=== PATIENT | female | born 1960 | race Caucasian/White ===

== ENCOUNTER 2018-07-18 16:11 | Outpatient (REF) | payer BC, SELFPAY ==
[2018-07-18 22:17] LABS: Anion Gap 7.8 mmol/L (3-11); BUN 18 mg/dL (7-18); CO2 29.2 mmol/L (21.0-32.0); CREATININE 0.64 mg/dL (0.55-1.02); Calcium 9.1 mg/dL (8.5-10.1); Chloride 104 mmol/L (98-107); Glucose 96 mg/dL (70-100); Potassium 3.9 mmol/L (3.5-5.1); Sodium 141 mmol/L (136-145)
[2018-07-20 12:12] LABS: Hepatitis C Ab w Rflx HCV PCR Negative (NEGAT)
== END 2018-07-18 16:31 ==
LOC: NCHCN 16:11
PROVIDERS: PCP Nurse Practitioner Family; Visit Provider Nurse Practitioner Family
DX: E11.9 Type 2 diabetes mellitus without complications (principal); R51 Headache; K21.9 Gastro-esophageal reflux disease without esophagitis; I47.1 Supraventricular tachycardia; G93.2 Benign intracranial hypertension; E66.9 Obesity, unspecified; Z00.00 Encounter for general adult medical examination without abnormal findings; Z11.59 Encounter for screening for other viral diseases
CPT/HCPCS: 80048; 86803

== ENCOUNTER 2019-07-23 14:43 | Outpatient (REF) | payer BC, SELFPAY | END 2019-07-23 15:03 | LOC: NCHCN 14:43 | PROVIDERS: PCP Nurse Practitioner Family; Visit Provider Nurse Practitioner Family | DX: L40.9 Psoriasis, unspecified (principal); Z00.00 Encounter for general adult medical examination without abnormal findings; R73.03 Prediabetes; R25.2 Cramp and spasm; G47.62 Sleep related leg cramps; G93.2 Benign intracranial hypertension; E66.9 Obesity, unspecified; M79.671 Pain in right foot | CPT/HCPCS: 84443 ==

== ENCOUNTER 2019-08-27 00:59 | Outpatient (CLI) | payer BC, SELFPAY ==
--- NOTE | 2019-08-27 16:04 | DI.MAMMO_ITS ---
EXAM: MAMMO SCREENING CLINICAL HISTORY: SCREENING, Z12.31 TECHNIQUE: Mammograms were interpreted according to the usual protocol including computer analysis w CITT[employer] CAD system, tomosynthesis and C-view imaging. FINDINGS: The breasts are of moderate density with fairly symmetrical distribution of fibroglandular tissue. N o dominant mass or clumped microcalcification is identified in breast. Current examination is compar ed with previous examinations including October 2017 and there has been no gross interval change in francisco earance in comparison with the previous studies. IMPRESSION: No specific evidence of malignancy at this time. Routine screening examinations are suggested at year ly intervals due to the family history of breast carcinoma. Category 1. Breast density, category B. BI-RADS Cat 1 - Negative. Breast Density - Category B - Scattered areas of fibroglandular density.
== END 2019-08-27 01:19 ==
PROVIDERS: PCP Nurse Practitioner Family; Visit Provider Nurse Practitioner Family
DX: Z12.31 Encounter for screening mammogram for malignant neoplasm of breast (principal); Z80.3 Family history of malignant neoplasm of breast
CPT/HCPCS: 77063; 77067

== ENCOUNTER 2019-09-18 15:20 | Emergency (ER) | payer BC, SELFPAY ==
[2019-09-18 15:22] VITALS: BP 150/81; PULSE 69; RESP 16; TEMP 36.5; O2SAT 97
--- NOTE | 2019-09-18 15:44 | ED.GENADUL_ITS ---
Discharge Plan Disposition Patient Disposition: HOME Condition: Improving Discharge Details Chief Complaint: Laceration Clinical Impression: Laceration of tongue without complication Primary Care Provider: Amanda Albarran ED Provider: Jesus Alberto Montanez Home Meds and New Rx's Prescriptions: No Action indomethacin 25 mg Capsule 25 mg PO DAILY RF: 0 Discharge Instructions Instructions: Laceration (ED) Additional Instructions: Continue to apply ice and/or popsicles to area to reduce discomfort and swelling. Return if you have a fever, foul-smelling discharge from the area or any other acute concerns. Soft diet for 3 days time. Medical Decision Making 59-year-old female who lacerated the right underside of her tongue bite catching it on a tooth while eating. She applied ice at home with cessation of bleeding. She arrives with a small 1 cm flap to the inferior portion of the right side of the tongue. There is no pocket and there is no active bleeding. Discussed the risk benefits of attempting repair which I feel is not indicated. She will maintain a soft diet for 2 to 3 days time, she will proceed with salt water gargles at home, she understands return precautions to the ER for reevaluation. HPI General Mode of arrival: ambulatory . Date/Time Provider Initiated Documentation: 09/18/19 15:24 . Limitations to Documentation: no limitations . Information obtained by: patient . History of Present Illness 59 year old F presents to the emergency department with the chief complaint of Tongue laceration, described as mild, Quality is described as dull, and is localized to the mouth and left. Patient reports no radiation. Patient started experiencing this minute(s) and it has been constant. No relieving factors improve symptom(s), No exacerbating factors reported . Patient notes no other symptoms.. Patient did receive the following treatments prior to arrival, none Related Data Home Medications Medication Instructions Recorded Confirmed indomethacin 25 mg PO DAILY 09/18/19 09/18/19 Allergies Allergy/AdvReac Type Severity Reaction Status Date / Time oxycodone Allergy Unknown Unverified 09/18/19 15:30 Sulfa (Sulfonamide Allergy Unknown Unverified 09/18/19 15:30 Antibiotics) General Stated Complaint: Laceration KATE: 4 Review of Systems Narrative: 4 systems reviewed and otherwise negative PFSH Social History Smoking/Tobacco Use Status: Never Alcohol Intake: never Drug use: Never Do you feel safe at home: Yes Do you feel safe in your relationship?: Yes Exam Narrative Exam Narrative: GEN: awake, alert, oriented 3. Pleasant, well groomed, interactive. HEAD: Normocephalic, atraumatic ENT: Mucous membranes moist, oropharynx reveals a small flap type laceration measuring approximate 1 cm on the right inferior surface of the tongue. There is no pocket. There is no active bleeding. EYES: PERRL, EOMI NECK: Full ROM, no HUONG, no menigismus Neuro: Grossly normal neurologic exam, conversant, interactive. Psych: Speech fluent, thoughts congruent, affect normal Course Vital Signs Vital signs: Vital Signs Temperature 36.5 C 09/18/19 15:22 Pulse 69 09/18/19 15:22 Respiratory Rate 16 09/18/19 15:22 Blood Pressure 150/81 H 09/18/19 15:22 Pulse Oximetry 97 09/18/19 15:22 Temperature 36.5 C 09/18/19 15:22 Temperature Source Temporal Artery Scan 09/18/19 15:22 Pulse 69 09/18/19 15:22 Respiratory Rate 16 09/18/19 15:22 Blood Pressure 150/81 H 09/18/19 15:22 Blood Pressure Position Supine 09/18/19 15:22 Pulse Oximetry 97 09/18/19 15:22 Oxygen Delivery Method Room Air 09/18/19 15:22 Oxygen Flow Rate 0 09/18/19 15:22 Pain Level 3 09/18/19 15:22
== END 2019-09-18 15:55 | disposition home or self-care (01) ==
PROVIDERS: Emergency Provider Emergency Medicine; PCP Nurse Practitioner Family
DX: S01.512A Laceration without foreign body of oral cavity, initial encounter (principal); W26.8XXA Contact with other sharp object(s), not elsewhere classified, initial encounter
CPT/HCPCS: 99282

== ENCOUNTER 2020-04-22 11:03 | Outpatient (CLI) | payer BC, SELFPAY ==
--- NOTE | 2020-04-22 10:30 | DI.RAD_ITS ---
EXAM: XR WRIST RT COMPLETE CLINICAL HISTORY: pain TECHNIQUE: COMPARISON: No exams were available for comparison FINDINGS: Three views were obtained. There are degenerative changes at the radioulnar joint with mild marginal osteophyte formation. Carpal alignment appears grossly within normal limits. There are marginal os teophytes at multiple sites involving the carpal joints, particularly at the navicular multangular an d multangular metacarpal joints. Small presumed degenerative cysts noted at multiple sites as well. IMPRESSION: Degenerative changes of the carpus as described above, most marked involving navicular multangular a nd multangular metacarpal joints RADIATION DOSE DELIVERED: Total DLP
== END 2020-04-22 11:23 ==
PROVIDERS: PCP Nurse Practitioner Family; Referring Provider Nurse Practitioner Family; Visit Provider Orthopaedic Surgery
DX: M19.031 Primary osteoarthritis, right wrist (principal); M25.731 Osteophyte, right wrist
CPT/HCPCS: 73110

== ENCOUNTER 2020-07-17 02:24 | Outpatient (CLI) | payer BC, SELFPAY ==
[2020-07-18 21:58] LABS: SARS-CoV-2 RNA Source Nasal/Nares
[2020-07-18 21:59] LABS: SARS-CoV-2 RNA Not Detected (NotDetected)
== END 2020-07-17 02:44 ==
PROVIDERS: PCP Nurse Practitioner Family; Visit Provider Orthopaedic Surgery
DX: Z01.818 Encounter for other preprocedural examination (principal); M65.4 Radial styloid tenosynovitis [de Quervain]
CPT/HCPCS: U0003

== ENCOUNTER 2020-07-21 06:06 | Day surgery (SDC) | payer BC, SELFPAY ==
[2020-07-21 06:23] VITALS: BP 137/81; PULSE 64; RESP 14; TEMP 36.4; O2SAT 97
[2020-07-21] MEDS: Lactated Ringers 1,000 ML 80 ML IV (06:40)
[2020-07-21] MEDS: ceFAZolin 1 GM/50 ML BAG IVPB (07:39)
[2020-07-21] MEDS: EPINEPHrine 1 MG/ML AMP pres-free (07:50)
[2020-07-21] MEDS: Bupivacaine 0.5% Pres-Free 30 ML VIAL (07:50)
--- NOTE | 2020-07-21 08:04 | W.PM.DSUDISC ---
Discharge Plan Disposition Patient Disposition: HOME Condition: Good Discharge Details Reason For Visit: RELEASE OF R FIRST DORSAL EXTENSOR COMPARTMENT Attending Provider: Jesus Alberto Pritchard Primary Care Provider: Amanda Albarran Home Meds and New Rx's Prescriptions: New hydrocodone-acetaminophen 5-325 mg tablet 1 tab PO Q6H PRN (Reason: pain) Qty: 7 RF: 0 Continued indomethacin 25 mg capsule 25 mg PO PRN Qty: 90 RF: 0 Discharge Instructions Additional Instructions: Elevate R hand above heart level as much as possible overnite tonite. Wiggle fingers 10 times/hr when awake to prevent swelling. Keep dressings and splint dry and in place for 5 days. Cover with plastic bag to shower. After 5 days, remove splint AND dressings and begin to move R wrist and thumb. Use R hand as much as your discomfort allows. May shower or bathe and get incision wet after you remove the dressings in 5 days. Leave incision uncovered when it is dry and sealed. Follow up with in 2 weeks. Take tylenol or indocin for mild pain. Take hydrocodone for breakthru pain, if needed. Referrals: Jesus Alberto Pritchard MD [ [facility] STAFF PHYSICIAN] - (f/u in 2 weeks.) Equipment/Supplies: Splint Activity:: Activity as Tolerated Shower/Bathe:: Cover Diet:: As Tolerated Discharge Orders Discharge Orders: Discharge Order (Routine); Ordered 07/21/20 Ordered By: Jesus Alberto Pritchard
[2020-07-21 08:46] VITALS: BP 112/53; PULSE 64; RESP 16; TEMP 36; O2SAT 98
--- NOTE | 2020-07-21 10:53 | W.PM.OP ---
Date of service: 07/21/20 Time of Service: 07:53 Operative Note Operative Note DATE OF PROCEDURE: 07/21/20 PRE-OP DIAGNOSIS: Tenosynovitis of the 1st dorsal extensor compartment right wrist, application of short arm radial thumb spica splint POST-OP DIAGNOSIS: same PROCEDURE: Tendon sheath incision at radial styloid for tenosynovitis of the 1st dorsal extensor compartment. SURGEON: Jesus Alberto Pritchard ANESTHESIA: regional PATHOLOGY: none sent COMPLICATIONS: None Patient was transported to: same day Patient's condition: stable Indications: This 60-year-old white female with a greater than 6-month history of radial wrist and thumb pain on the right. Splinting of the thumb and wrist did help decrease the discomfort, but she was unable to work efficiently with the splint. Whenever she stopped wearing her splint her symptoms of radial wrist pain recurred. She was to undergo a release of the 1st dorsal extensor compartment to alleviate her pain on a permanent basis. Risk and complication of the procedure explained patient in detail preoperatively. Procedure Description: Patient was taken to the operating room on 2020-07-21 where she was placed supine on operative table. An IV regional anesthetic was administered to the right upper extremity. Once good anesthesia was obtained the right hand wrist and forearm were prepped and draped free in usual sterile fashion. Longitudinal incision was made over the 1st dorsal extensor compartment at the radial styloid. Incision was approximately 3 inches in length. The incision was carried down to the skin and subcutaneous fat. Blunt tipped Littler scissors were then used to mobilize the fat and terminal branch of the superficial radial nerve away from the tendon sheath the 1st dorsal extensor compartment. I discovered a separate slip of tendon that was not only in a separate compartment but is actually scarred down to the rosen of the separate compartment. Sharp dissection was used to open the separate compartment and to excise the fibrous tissue that formed the compartment. The tendon slip was completely free of any adhesions when I was finished. The wound was irrigated with saline solution. The wound margins were infiltrated 0.5% Marcaine with epinephrine solution. Skin and subtenons tissue was approximated with a horizontal mattress sutures of 4-0 nylon suture material. Wounds dressed with Xeroform gauze sterile gauze 4 x 4's and ABD pad and then wrapped with a 4 inch Kerlix bandage. A short arm radial thumb spica splint was then fabricated fiberglass casting material and applied with a 3 inch Coy bandage. The patient's IV regional anesthesia was reversed without complications. There is no breakthrough bleeding to the dressings. She was discharged to the surge unit in good condition. Patient was discharged home from day surgery unit and fully recovered from her IV regional anesthesia. She is given instructions to try to elevate her right wrist above heart level as much as possible overnight tonight. She is encouraged to wiggle her fingers 10 times an hour while awake to prevent stiffness and swelling. She is to keep her dressings and splint dry and intact for 5 days. After 5 days, she is to remove the dressings and splint and begin to move her right wrist and thumb. After she removes the dressing she may shower bathe and get the incision wet. She can leave the incision uncovered when it is dry and sealed. She may use her right hand is much as discomfort allows. She is to take Tylenol or Indocin for mild pain. She is given a prescription for breakthrough pain of hydrocodone with APAP 5/325, 1 tab every 6 hours as needed. She should follow-up with Dr. Pritchard in 2 weeks.
== END 2020-07-21 09:18 | disposition home or self-care (01) ==
PROVIDERS: PCP Nurse Practitioner Family; Visit Provider Orthopaedic Surgery
PROC: (CPT 25000; principal; 2020-07-21 07:30)
DX: M65.88 Other synovitis and tenosynovitis, other site (principal); M65.4 Radial styloid tenosynovitis [de Quervain]
CPT/HCPCS: 25295; J0171; J0690; J2405

== ENCOUNTER 2020-10-16 11:57 | Outpatient (REF) | payer OTHER, SELFPAY ==
--- NOTE | 2020-10-16 11:15 | PAPFT_PTH ---
PATIENT: Allie Jones LOC: [facility]#:[id number] AGE/SX: 60/F ROOM: RE10/16/[address]: Amanda Albarran : 1960 BED: DIS: 10/16/2020 SPEC #: [id number] RECD: 10/16/20 13:10 STATUS: FERNANDO REAbbie #: [id number] JKAE: 10/16/20 11:[address]: Amanda Albarran DEPT: [facility] Cytology RECD BY: Dara Figueroa Tissues: 1 - CX/ENDOCX FOR PAP SMEARS Procedures: PAP THIN PREP/UVM Screening HPV DNA PROBE Comments: [id number]
[2020-10-16 13:20] LABS: Hemoglobin A1C 6.3 % (<5.7)
[2020-10-16 13:32] LABS: BUN 26 mg/dL (7-18); CREATININE 0.7 mg/dL (0.55-1.02); Calcium 9.2 mg/dL (8.5-10.1); Calculated LDL 122 mg/dL (<100); Chloride 105 mmol/L (98-107); Cholesterol 207 mg/dL (<200); Glucose 99 mg/dL (74-106); HDL Cholesterol 56 mg/dL (40-60); Potassium 4.1 mmol/L (3.5-5.1); Sodium 143 mmol/L (136-145); TSH (W/Ref FT4) 0.84 uIU/mL (0.36-3.74); Triglyceride 145 mg/dL (<150)
== END 2020-10-16 11:58 | disposition home or self-care (01) ==
LOC: NCHCN 11:57
PROVIDERS: PCP Nurse Practitioner Family; Visit Provider Nurse Practitioner Family
DX: Z00.00 Encounter for general adult medical examination without abnormal findings (principal); R73.03 Prediabetes; G47.62 Sleep related leg cramps; K21.9 Gastro-esophageal reflux disease without esophagitis; E66.9 Obesity, unspecified; Z12.4 Encounter for screening for malignant neoplasm of cervix; Z11.51 Encounter for screening for human papillomavirus (HPV)
CPT/HCPCS: 80048; 80061; 88142; 83036; 84443; 87624

== ENCOUNTER 2020-11-06 01:18 | Outpatient (CLI) | payer OTHER, SELFPAY ==
--- NOTE | 2020-11-06 12:14 | DI.MAMMO_ITS ---
EXAM: MG MAMMO SCREENING CLINICAL HISTORY: SCREENING, Z12.31 TECHNIQUE: Bilateral full field digital CC and MLO mammographic images were obtained with 3D tomosyn thesis and utilizing computer aided detection (CAD). COMPARISON: Available for comparison. FINDINGS: Masses/Architectural Distortion: None seen. Microcalcifications: No suspicious pleomorphic-type are seen. Skin Thickening/Nipple Retraction: None. IMPRESSION: 1. No significant interval change with no specific features of malignancy noted. 2. Unless there is more urgent need, screening mammography is recommended, as per [employer] guidelines. BI-RADS Category 1 - Negative Breast Density - Category B - Scattered areas of fibroglandular density Breast density category C or D implies that the patient has dense breast tissue. Dense breast tissue is very common and is not abnormal but dense breast tissue can make it harder to find cancer on a ma mmogram. Also, dense breast tissue may increase their breast cancer risk. This information about the result of the mammogram report was provided to the patient to raise their awareness. Use this report when you speak with the patient about their risks for breast cancer, which includes their family hist ory. At that time, you may recommend for more screening tests (Ultrasound or MRI) as they might be us eful based on their risk. A negative radiographic report should not delay biopsy if a dominant or clinically suspicious mass is present. Up to ten percent of cancers are not identified on mammography. A negative report may reinforce clinical impression. Adenosis and dense breasts may obscure an underlying neoplasm. False positive reports average 6 to 10%. Patient will receive a letter notifying them of these results.
== END 2020-11-06 01:38 ==
PROVIDERS: PCP Nurse Practitioner Family; Visit Provider Nurse Practitioner Family
DX: Z12.31 Encounter for screening mammogram for malignant neoplasm of breast (principal)
CPT/HCPCS: 77063; 77067

== ENCOUNTER 2022-01-14 19:47 | Outpatient (REF) | payer OTHER, SELFPAY ==
[2022-01-14 21:01] LABS: Hemoglobin A1C 6.2 % (<5.7)
[2022-01-14 21:26] LABS: Anion Gap 9.7 mmol/L (3-11); BUN 22 mg/dL (7-18); CO2 27.3 mmol/L (21.0-32.0); Calcium 8.6 mg/dL (8.5-10.1); Chloride 107 mmol/L (98-107); Estimated GFR 56.37 (mL/min/1.73m2); Glucose 101 mg/dL (74-106); Magnesium 1.9 mg/dL (1.8-2.4); Potassium 4.2 mmol/L (3.5-5.1); Sodium 144 mmol/L (136-145); Vitamin B12 458 pg/mL (193-986)
== END 2022-01-14 19:48 | disposition home or self-care (01) ==
LOC: NCHCN 19:47
PROVIDERS: PCP Nurse Practitioner Family; Visit Provider Nurse Practitioner Family
DX: Z00.00 Encounter for general adult medical examination without abnormal findings (principal); E78.5 Hyperlipidemia, unspecified; R73.03 Prediabetes; G47.62 Sleep related leg cramps; K21.9 Gastro-esophageal reflux disease without esophagitis; M79.644 Pain in right finger(s)
CPT/HCPCS: 80048; 82607; 83036; 83735

== ENCOUNTER → 2022-04-21 01:20 | Outpatient (CLI) | payer OTHER, SELFPAY ==
--- NOTE | 2022-04-21 11:58 | DI.MAMMO_ITS ---
Exam(s) MAMMO SCREENING EXAM: MAMMO SCREENING CLINICAL HISTORY: SCREENING MAMMO Z12.31 FAMILY HX BREAST CANCER Z80.3. TECHNIQUE: Bilateral full field digital CC and MLO mammographic images were obtained with 3D tomosyn thesis and utilizing computer aided detection (CAD). COMPARISON: Prior mammograms were reviewed, the most recent being October 2020. FINDINGS: There has been no significant change in the appearance and distribution of the fibroglandular tissue. There are no CAD designations. There are no new spiculated masses nor malignant appearing microcalcification groups. Small nodular density laterally in the left breast located 7 cm from the nipple is unchanged from frank or studies. There is no significant architectural distortion nor skin thickening-retraction. IMPRESSION: No radiographic evidence of malignancy. Stable benign-appearing findings. BI-RADS Category 2 - Benign Findings Breast Density - Category B - Scattered areas of fibroglandular density Breast density Category C or D implies that the patient has dense breast tissue. Dense breast tissue can make it harder to find cancer on a mammogram. Dense breast tissue is also associated with an incr eased risk of breast cancer. This information about the result of the mammogram report was provided to the patient to raise their awareness. Use this report when you speak with the patient about their risks for breast cancer, which includes their family history. At that time, you may recommend additional screening tests (Ultrasoun d or MRI) as these tests may add significant information. A negative radiographic report should not delay biopsy if a dominant or clinically suspicious mass is present. Up to ten percent of cancers are not identified on mammography. A negative report may reinforce clinical impression. Adenosis and dense breasts may obscure an underlying neoplasm. False positive reports average 6 to 10%. Patient will receive a letter notifying them of these results.
== END ==
PROVIDERS: PCP Nurse Practitioner Family; Visit Provider Nurse Practitioner Family
DX: Z12.31 Encounter for screening mammogram for malignant neoplasm of breast (principal); Z80.3 Family history of malignant neoplasm of breast
CPT/HCPCS: 77063; 77067

== ENCOUNTER 2023-01-04 12:40 | Outpatient (REF) | payer OTHER, SELFPAY ==
[2023-01-04 14:52] LABS: Anion Gap 6.5 mmol/L (3-11); BUN 22 mg/dL (7-18); CO2 30.5 mmol/L (21.0-32.0); CREATININE 0.9 mg/dL (0.55-1.02); Calcium 9.1 mg/dL (8.5-10.1); Calculated LDL 150 mg/dL (<100); Chloride 108 mmol/L (98-107); Cholesterol 219 mg/dL (<200); Estimated GFR 72.28 (mL/min/1.73m2); Glucose 117 mg/dL (74-106); HDL Cholesterol 48 mg/dL (40-60); Potassium 4.2 mmol/L (3.5-5.1); Sodium 145 mmol/L (136-145); Triglyceride 106 mg/dL (<150)
[2023-01-04 15:00] LABS: Hemoglobin A1C 6.3 % (<5.7)
== END 2023-01-04 12:41 | disposition home or self-care (01) ==
LOC: NCHCN 12:40
PROVIDERS: PCP Nurse Practitioner Family; Visit Provider Nurse Practitioner Family
DX: Z00.00 Encounter for general adult medical examination without abnormal findings (principal); E78.5 Hyperlipidemia, unspecified; R73.03 Prediabetes; E66.9 Obesity, unspecified
CPT/HCPCS: 80048; 80061; 83036

== ENCOUNTER 2023-06-16 01:30 | Outpatient (CLI) | payer OTHER, SELFPAY ==
--- NOTE | 2023-06-16 15:18 | DI.MAMMO_ITS ---
Exam(s) MAMMO SCREENING EXAM: MAMMO SCREENING CLINICAL HISTORY: SCREENING, Z12.31, FAMILY H/O BREAST CA, Z80.3 TECHNIQUE: Bilateral full field digital CC and MLO mammographic images were obtained with 3D tomosyn thesis and utilizing computer aided detection (CAD). COMPARISON: Available for comparison. FINDINGS: Masses/Architectural Distortion: There is a new 6 mm nodule in the medial right breast on the cranioc audad view. No areas of architectural distortion are seen. Microcalcifications: No suspicious pleomorphic-type are seen. Skin Thickening/Nipple Retraction: None. IMPRESSION: 1. New 6 mm nodule in the medial right breast. This is best appreciated on the tomograms. 2. Spot compression views requested for further evaluation. Ultrasound may be indicated at that time . BI-RADS Category 0 - Assessment Incomplete: Need additional imaging evaluation Breast Density - Category B - Scattered areas of fibroglandular density Breast density category C or D implies that the patient has dense breast tissue. Dense breast tissue is very common and is not abnormal but dense breast tissue can make it harder to find cancer on a ma mmogram. Also, dense breast tissue may increase their breast cancer risk. This information about the result of the mammogram report was provided to the patient to raise their awareness. Use this report when you speak with the patient about their risks for breast cancer, which includes their family hist ory. At that time, you may recommend for more screening tests (Ultrasound or MRI) as they might be us eful based on their risk. A negative radiographic report should not delay biopsy if a dominant or clinically suspicious mass is present. Up to ten percent of cancers are not identified on mammography. A negative report may reinforce clinical impression. Adenosis and dense breasts may obscure an underlying neoplasm. False positive reports average 6 to 10%. Patient will receive a letter notifying them of these results.
== END 2023-06-16 01:50 ==
LOC: DI 01:31
PROVIDERS: PCP Nurse Practitioner Family; Visit Provider Nurse Practitioner Family
DX: Z12.31 Encounter for screening mammogram for malignant neoplasm of breast (principal); Z80.3 Family history of malignant neoplasm of breast
CPT/HCPCS: 77063; 77067

== ENCOUNTER → 2023-06-21 00:49 | Outpatient (CLI) | payer OTHER, SELFPAY ==
--- NOTE | 2023-06-21 10:33 | DI.MAMMO_ITS ---
Exam(s) MAMMO SCREEN CALL BACK UNI EXAM: MAMMO SCREEN CALL BACK UNI CLINICAL HISTORY: NODULE MEDIAL RT BREAST R92.8 ABNL MAMMO TECHNIQUE: Spot compression views with tomographic imaging were performed. COMPARISON: 2015 through recent exam of 16 June 2023 FINDINGS: Spot compression view with mole markers was performed of the medial right breast. The area of nodularity medially in question on the recent exam corresponds to a skin mole. No suspici ous masses or suspicious microcalcifications are seen. IMPRESSION: BI-RADS Category 1, Negative Yearly screening mammography is recommended. Breast Density - Category B, scattered fibroglandular densities.
== END ==
PROVIDERS: PCP Nurse Practitioner Family; Visit Provider Nurse Practitioner Family
DX: Z12.31 Encounter for screening mammogram for malignant neoplasm of breast (principal); R92.8 Other abnormal and inconclusive findings on diagnostic imaging of breast
CPT/HCPCS: 77063; 77067

== ENCOUNTER 2023-07-28 09:46 | Day surgery (SDC) | payer OTHER, SELFPAY ==
--- NOTE | 2023-07-27 19:12 | W.PM.DSUDISC ---
Date of service: 07/28/23 Time of Service: 11:29 Discharge Plan Disposition Patient Disposition: Home Condition: Good Discharge Details Reason For Visit: screening colonoscopy Attending Provider: Kj Yeboah Primary Care Provider: Amanda Albarran Home Meds and New Rx's Prescriptions: Continued indomethacin 25 mg capsule 25 mg PO PRN Qty: 90 0RF Rx Instructions: Take PRN up to 3 times a day. administer with food or milk famotidine [Pepcid] 20 mg tablet 20 mg PO DAILY PRN indomethacin 25 mg capsule 25 mg PO BID PRN Rx Instructions: administer with food or milk acetaminophen [Tylenol] 325 mg capsule 650 mg PO ONCE PRN Discontinued bisacodyl [Dulcolax (bisacodyl)] 5 mg tablet,delayed release (DR/EC) 5 mg PO ONCE Qty: 4 0RF polyethylene glycol 3350 17 gram/dose powder 17 g PO DAILY Qty: 238 0RF Discharge Instructions Additional Instructions: Allie, we were able to complete your colonoscopy today without any difficulty. You have some very mild internal hemorrhoids, otherwise the colonoscopy was normal. I did not see any signs of tumors or polyps. You should consider another screening colonoscopy in 10 years. 1. If tolerated, consume a soft, low fiber diet for 1-2 days. [address] Do not drive, drink alcohol, operate machinery, make critical decisions, or do activities that require coordination or balance for 24 hours. 3. Because air was put into your colon during the procedure, expelling air from your rectum (passing gas or farting) is normal. 4. You may not have a bowel movement for 1-3 days because of the colonoscopy prep. This is normal. 5. Go directly to the emergency room if you notice any of the following: Develop chills (warm to touch), or if you have a thermometer and your temperature is above 101 Difficulty breathing or difficultly swallowing Persistent vomiting Severe abdominal pain, other than gas cramps Severe chest pain Black, tarry stools Any bleeding ? exceeding one tablespoon 6. Call your physician if the site where your intravenous was started becomes red, swollen, painful, and warm to touch. 7. Your physician has reviewed your pre-procedure medications. Please continue to take those medications as previously ordered. You will be given specific information/education regarding any changes to your medications before leaving. Activity:: Activity as Tolerated Diet:: As Tolerated Discharge Orders Discharge Orders: Discharge Order (Routine); Ordered 07/27/23 Ordered By: Kj Yeboah DS: Diagnosis Discharge Diagnosis (1) Screen for colon cancer: Status: Acute Asessment and Plan: Negative screening colonoscopy
--- NOTE | 2023-07-27 19:14 | W.PM.DSUDISC ---
Date of service: 07/28/23 Discharge Plan Disposition Patient Disposition: Home Condition: Good Discharge Details Reason For Visit: screening colonoscopy Attending Provider: Kj Yeboah Primary Care Provider: Amanda Albarran Home Meds and New Rx's Prescriptions: Continued indomethacin 25 mg capsule 25 mg PO PRN Qty: 90 0RF Rx Instructions: Take PRN up to 3 times a day. administer with food or milk famotidine [Pepcid] 20 mg tablet 20 mg PO DAILY PRN indomethacin 25 mg capsule 25 mg PO BID PRN Rx Instructions: administer with food or milk Discontinued bisacodyl [Dulcolax (bisacodyl)] 5 mg tablet,delayed release (DR/EC) 5 mg PO ONCE Qty: 4 0RF polyethylene glycol 3350 17 gram/dose powder 17 g PO DAILY Qty: 238 0RF Discharge Instructions Additional Instructions: 1. If tolerated, consume a soft, low fiber diet for 1-2 days. [address] not drive, drink alcohol, operate machinery, make critical decisions, or do activities that require coordination or balance for 24 hours. 3. Because air was put into your colon during the procedure, expelling air from your rectum (passing gas or farting) is normal. 4. You may not have a bowel movement for 1-3 days because of the colonoscopy prep. This is normal. 5. Go directly to the emergency room if you notice any of the following: Develop chills (warm to touch), or if you have a thermometer and your temperature is above 101 Difficulty breathing or difficultly swallowing Persistent vomiting Severe abdominal pain, other than gas cramps Severe chest pain Black, tarry stools Any bleeding ? exceeding one tablespoon 6. Call your physician if the site where your intravenous was started becomes red, swollen, painful, and warm to touch. 7. Your physician has reviewed your pre-procedure medications. Please continue to take those medications as previously ordered. You will be given specific information/education regarding any changes to your medications before leaving. Activity:: Activity as Tolerated Diet:: As Tolerated DS: Diagnosis Discharge Diagnosis (1) Screen for colon cancer: Status: Acute
--- NOTE | 2023-07-27 19:14 | W.COLOREPORT ---
Date of service: 07/28/23 Time of Service: Colonoscopy Report Date of procedure: 07/28/23 Pre-op diagnosis general: screening colonoscopy Post-op diagnosis procedure note: other (Negative screening colonoscopy) Procedure: colonoscopy Surgeon: Kj Yeboah Anesthesia Type: General:No Airway Estimated blood loss (mL): 0 Pathology: none sent Complications: None Disposition: same day Indications: Allie is a 63 year old woman who needs a screening colonoscopy Prep: Miralax/Dulcolax Procedure Start Time: :07 Procedure End Time: : Retraction Time: 9 Findings: Grade 1 internal hemorrhoids; otherwise negative screening colonoscopy Procedure Description: After the induction of monitored anesthetic care, and with the patient in left lateral decubitus position, I began by performing an external anorectal exam.? Perineum and skin were normal, as was the anal verge.? There was no evidence of external hemorrhoids.? Next, I performed a digital rectal exam.? I did not appreciate any abnormal findings.? Next, I advanced a colonoscope into the rectal vault.? I performed retroflexion.? There were grade 1 internal hemorrhoids.? Using insufflation, I then advanced the colonoscope beyond the rectal folds and into the sigmoid colon before advancing towards the cecum.? The quality of the prep was excellent.? The scope was noted to be in the cecum by identification of the ileocecal valve and appendiceal orifice.? I then began withdrawing the colonoscope using repeated irrigation as necessary for full evaluation of the colonic mucosa. ?Once the scope was withdrawn to the level of the rectum, great care was taken to examine portions of the rectal folds.? Finally, the scope was withdrawn and the patient was brought to the same-day surgery recovery unit as the anesthetic wore off. ?The findings and instructions were shared with the patient prior to discharge. [place] Bowel Prep [place] Bowel Prep Right Colon: 3 Left Colon: 3 Transverse Colon: 3 Total Score: 9
[2023-07-28 10:12] VITALS: BP 149/89; PULSE 70; RESP 16; TEMP 36.2; O2SAT 98
[2023-07-28] MEDS: Lactated Ringers 1,000 ML 80 ML IV (10:40)
--- NOTE | 2023-07-28 10:43 | W.ANESPRE ---
General Info Date of Service Date Performed: 07/28/23 Height: 5 ft 4 in Weight: 108.7 kg Body Mass Index (BMI): 41.1 Surgical Procedure: Operation Date: 07/28/23 10:50 Proposed Procedure Side Surgeon mari Yeboah MD Meds Allergies and Home Medications Allergies Allergy/AdvReac Type Severity Reaction Status Date / Time oxycodone Allergy Unknown Verified 07/28/23 10:15 Sulfa (Sulfonamide Allergy Unknown Verified 07/28/23 10:15 Antibiotics) Home Medication Medication Instructions Recorded indomethacin 25 mg capsule 25 mg PO PRN #90 caps 05/20/20 famotidine 20 mg tablet (Pepcid) 20 mg PO DAILY PRN 07/14/23 indomethacin 25 mg capsule 25 mg PO BID PRN 07/14/23 acetaminophen 325 mg capsule 650 mg PO ONCE PRN 07/28/23 (Tylenol) Current Visit Medications: Current Medications Generic Name Dose Route Start Last Admin Trade Name Freq PRN Reason Stop Dose Admin Hyoscyamine Sulfate 0.125 mg 07/27/23 19:15 Hyoscyamine 0.125 Mg Sl/Oral/Chew SL 08/26/23 19:14 DIRECTED PRN Ringer's Solution 1,000 mls @ 80 mls/hr 07/28/23 06:00 IV 07/28/23 23:59 [facility] IV Miscellaneous Supplies 1 each 07/28/23 06:00 Iv Access IV 07/28/23 23:59 DIRECTED RADHA Ondansetron HCl 4 mg 07/27/23 19:15 Ondansetron 4 Mg/2 Ml Vial IVP 08/26/23 19:14 Q4H PRN PRN Nausea / Vomiting Sodium Chloride 0 ml 07/28/23 06:00 Normal Saline Flush 10 Ml Syr IV 07/28/23 23:59 PRN PRN Sodium Chloride 0 ml 07/28/23 06:00 Normal Saline 10 Ml Vial IJ 07/28/23 23:59 DIRECTED PRN Sterile Water 0 ml 07/28/23 06:00 Water,Injection,Sterile 10 Ml Vial IJ 07/28/23 23:59 DIRECTED PRN PFSH Active Problems Active Problems: Problem Status Onset Code Screen for colon cancer Z12.11 Sensorineural hearing loss (SNHL) of both ears H90.3 Arthritis of carpometacarpal (CMC) joint of right thumb M18.11 De Quervain's disease (radial styloid tenosynovitis) M65.4 Acute otitis media, left H66.92 Medical History Medical History Seborrheic keratosis Snoring Decreased hearing of both ears Right hand pain Urinary incontinence, mixed Psoriasis GERD (gastroesophageal reflux disease) Nocturnal leg cramps Pseudotumor cerebri Supraventricular tachycardia Prediabetes Surgical History Surgical History Hx of colonoscopy History of total left knee replacement (TKR) History of total right knee replacement (TKR) History of laparoscopic cholecystectomy History of tonsillectomy and adenoidectomy Tobacco Smoking/Tobacco Use Status: Never Alcohol Alcohol Intake: never Substance Use Substance use: Never Substance use type: does not use Vital Signs and Lab Results Vital Signs Most Recent Vital Signs in EMR: Most Recent Vital Signs Temp Pulse Resp BP Pulse Ox 36.2 C L 70 16 149/89 H 98 07/28/23 10:12 07/28/23 10:12 07/28/23 10:12 07/28/23 10:12 07/28/23 10:12 Lab Results Blood Type / Crossmatch: No Data to Display Complete Blood Count: No Data to Display Complete Metabolic Panel: No Data to Display Liver Function Panel: No Data to Display Coagulation Panel: No Data to Display Cardiac Panel: No Data to Display Arterial Blood Gas: No Data to Display Venous Blood Gas: No Data to Display Pancreas Panel: No Data to Display Thyroid Panel: No Data to Display Infectious Disease: No Data to Display Blood Cultures: No Data to Display Toxicology Panel: No Data to Display Anesthesia Assessment and Plan Anesthesia History Personal History: No History of Anesthesia Complications Family History: No Family History of Anesthesia Complications Exercise Tolerance Exercise Tolerance: Metabolic Equivalents>4 Pertinent Negatives Pertinent Negatives: No Symptoms of GERD, No Major Cardiovascular Symptoms or Complaints and No Major Pulmonary Symptoms or Complaints Cardiac & Pulmonary Exam Cardiac Exam: Normal S1/S2 Heart Sounds Pulmonary Exam: Clear Bilateral Breath Sounds Implantable Cardiac Device Does patient have a Pacemaker or an ICD?: No Airway Exam Known Difficult Airway: No Mallampati Class: 3 Mouth Opening: Normal (> 3cm) Thyromental Distance: Greater than 3 cm Neck Range of Motion: Full ROM Neck Circumference: Normal Teeth Condition: Normal Dentition ASA Classification ASA Score: ASA 3 Emergency Case?: No NPO Status NPO Status: NPO Clears >2 hours, Solids >8 hours Anesthesia Plan Resuscitation Status: Full Code Anesthesia Technique: General Anesthesia Airway Planned: Natural Airway Monitors Used: Standard Monitors
[2023-07-28 10:44] VITALS: BMI 41.1
[2023-07-28 11:28] VITALS: BP 134/79; PULSE 66; RESP 18; TEMP 36.5; O2SAT 94
[2023-07-28 12:00] VITALS: BP 147/81; PULSE 62; RESP 18; TEMP 36.5; O2SAT 99
--- NOTE | 2023-07-28 13:35 | W.ANESPOSTOP ---
Postoperative Evaluation Date, Time and Location Date Performed: 07/28/23 Time Performed: 12:06 Patient Location: Day Surgery Unit Vital Signs Most Recent Imported Vital Signs: Most Recent Vital Signs Temp Pulse Resp BP Pulse Ox 36.5 C 62 18 147/81 H 99 07/28/23 12:00 07/28/23 12:00 07/28/23 12:00 07/28/23 12:00 07/28/23 12:00 Pain Score Most Recent Pain Score: Most Recent Pain Score Pain Level 0 07/28/23 12:00 Assessment Mental Status: Awake (Alert & Oriented to Patient Baseline) Airway and Respiratory Function: Patent airway with normal (patient baseline) respiratory exam Cardiovascular Function: Hemodynamically Stable Hydration Status: Adequately Hydrated Nausea & Vomiting: No Nausea or Vomiting Pain: Pt. Denies Any Pain Peripheral Nerve Block: Patient did not receive a nerve block
== END 2023-07-28 12:22 | disposition home or self-care (01) ==
LOC: SUR 09:46
PROVIDERS: PCP Nurse Practitioner Family; Visit Provider Surgery
PROC: 0DJD8ZZ Inspection of Lower Intestinal Tract, Via Natural or Artificial Opening Endoscopic (ICD-10-PCS; CPT 45378; principal; 2023-07-28 10:45)
DX: Z12.11 Encounter for screening for malignant neoplasm of colon (principal); K64.0 First degree hemorrhoids
CPT/HCPCS: 45378; J2001

== ENCOUNTER 2024-05-21 16:37 | Outpatient (REF) | payer OTHER, SELFPAY ==
[2024-05-21 15:00] LABS: ALT 30 U/L (14-59); AST 27 U/L (15-37); Albumin 3.5 g/dL (3.4-5.0); Alkaline Phosphatase 98 U/L (46-116); Anion Gap 5.7 mmol/L (3-11); BUN 17 mg/dL (7-18); Bilirubin, Total 0.56 mg/dL (0.2-1.0); CO2 31.3 mmol/L (21.0-32.0); CREATININE 0.7 mg/dL (0.55-1.02); Calcium 9.3 mg/dL (8.5-10.1); Calculated LDL 81 mg/dL (<100); Chloride 106 mmol/L (98-107); Cholesterol 163 mg/dL (<200); Estimated GFR 96.52 (mL/min/1.73m2); Glucose 97 mg/dL (74-106); HDL Cholesterol 63 mg/dL (40-60); Potassium 4.3 mmol/L (3.5-5.1); Sodium 143 mmol/L (136-145); Triglyceride 96 mg/dL (<150)
== END 2024-05-21 16:38 | disposition home or self-care (01) ==
LOC: NCHCN 16:37
PROVIDERS: PCP Nurse Practitioner Family; Visit Provider Nurse Practitioner Family
DX: I10 Essential (primary) hypertension (principal); E78.5 Hyperlipidemia, unspecified
CPT/HCPCS: 80053; 80061

== ENCOUNTER 2024-06-14 00:39 | Outpatient (CLI) | payer OTHER, SELFPAY ==
--- NOTE | 2024-06-14 09:11 | DI.RAD_ITS ---
Exam(s) XR SHOULDER LT COMPLETE 2+V EXAM: XR SHOULDER LT COMPLETE 2+V CLINICAL HISTORY: PAIN LT SHOULDER REGION, M25.512. TECHNIQUE: 2D digital imaging was performed of the left shoulder. Five images were obtained. AP, G rashey, Y-view and axillary views were obtained. COMPARISON: No exams were available for comparison FINDINGS: BONES: No acute fracture is present. No bony destructive lesion is seen. JOINTS: No dislocation present. Arthritic changes are seen at the acromioclavicular and glenohumeral joints. There is mild downward sloping of the lateral acromion. SOFT TISSUE: Calcifications are seen adjacent to the humeral head suggesting calcific tendinitis. 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 DATA REPOSITORY: RADIATION DOSE DELIVERED:
== END 2024-06-14 00:59 ==
LOC: DI 00:39
PROVIDERS: PCP Nurse Practitioner Family; Visit Provider Nurse Practitioner Family
DX: M25.512 Pain in left shoulder (principal)
CPT/HCPCS: 73030

== ENCOUNTER 2024-06-20 01:46 | Outpatient (CLI) | payer OTHER, SELFPAY ==
--- NOTE | 2024-06-20 | DI.MAMMO_ITS ---
Exam(s) MAMMO SCREENING EXAM: MAMMO SCREENING CLINICAL HISTORY: SCREENING MAMMO Z80.3 FAM HX BREAST CANCER. TECHNIQUE: Bilateral full field digital CC and MLO mammographic images were obtained with 3D tomosyn thesis and utilizing computer aided detection (CAD). COMPARISON: Prior mammograms were reviewed. FINDINGS: There has been no significant change in the appearance and distribution of the fibroglandular tissue. Small benign-appearing nodule in the left breast are unchanged from prior mammograms There are no new spiculated masses nor malignant appearing microcalcification groups. There is no significant architectural distortion nor skin thickening-retraction. IMPRESSION: Stable benign-appearing findings. No radiographic evidence of malignancy. BI-RADS Category 2 - Benign Findings Breast Density - Category B - Scattered areas of fibroglandular density Breast density Category C or D implies that the patient has dense breast tissue. Dense breast tissue can make it harder to find cancer on a mammogram. Dense breast tissue is also associated with an incr eased risk of breast cancer. This information about the result of the mammogram report was provided to the patient to raise their awareness. Use this report when you speak with the patient about their risks for breast cancer, which includes their family history. At that time, you may recommend additional screening tests (Ultrasoun d or MRI) as these tests may add significant information. A negative radiographic report should not delay biopsy if a dominant or clinically suspicious mass is present. Up to ten percent of cancers are not identified on mammography. A negative report may reinforce clinical impression. Adenosis and dense breasts may obscure an underlying neoplasm. False positive reports average 6 to 10%. Patient will receive a letter notifying them of these results.
== END 2024-06-20 02:06 ==
LOC: DI 01:46
PROVIDERS: PCP Nurse Practitioner Family; Visit Provider Nurse Practitioner Family
DX: Z12.31 Encounter for screening mammogram for malignant neoplasm of breast (principal); Z80.3 Family history of malignant neoplasm of breast
CPT/HCPCS: 77063; 77067

== ENCOUNTER 2024-07-11 00:38 | Outpatient (CLI) | payer OTHER, SELFPAY ==
--- NOTE | 2024-07-11 14:30 | DI.MRI_ITS ---
Exam(s) MR UPPER JOINT LT WO EXAM: MR UPPER JOINT LT WO CLINICAL HISTORY: PAIN LT SHOULDER REGION, M25.512. TECHNIQUE: Multiplanar multisequence MRI was performed. COMPARISON: CR XR SHOULDER LT COMPLETE 2+V from 06/14/2024 FINDINGS: BONES: There is no fracture or contusion pattern. Subchondral cysts seen in the lesser tuberosity. JOINTS: Mild degenerative changes are seen at the acromioclavicular joint. There is thinning of the articular cartilage at the glenohumeral joint. There is a small amount of fluid in the joint space. TENDONS: Supraspinatus: Unremarkable. Infraspinatus: There is a focus of hyperintense signal which appears to lie in the infraspinatus tend on anteriorly at its insertion site suspicious for partial tear. Subscapularis: Unremarkable. Teres Minor: Unremarkable. Biceps and Gypsy: Tendinosis of the long head of the biceps tendon. No evidence of a tear. MUSCLES: Unremarkable. GLENOID LABRUM: There is loss of volume and hyperintense signal seen in the posterior aspect of the g lenoid labrum suggesting a tear and/or degeneration. SOFT TISSUES: Unremarkable. LIGAMENTS: Unremarkable. OTHER: There is mild edema seen in the subacromial subdeltoid bursa. IMPRESSION: 1. Thus of hyperintense signal seen in the region of the anterior aspect of the infraspinatus tendon at its insertion site suspicious for partial tear. 2. Long head of the biceps tendinosis. 3. Decreased size and hyperintense signal seen in the region of the posterior labrum consistent with a tear and/or degeneration. 4. Degenerative changes seen at the acromioclavicular joint. DATA REPOSITORY:
== END 2024-07-11 00:58 ==
LOC: DI 00:39
PROVIDERS: PCP Nurse Practitioner Family; Visit Provider Nurse Practitioner Family
DX: M19.012 Primary osteoarthritis, left shoulder (principal)
CPT/HCPCS: 73221

== ENCOUNTER 2024-08-15 02:47 | Outpatient (CLI) | payer OTHER, SELFPAY ==
--- NOTE | 2024-08-15 12:23 | DI.RAD_ITS ---
Exam(s) RF JOINT INJ. FLUORO GUID RAD EXAM: RF JOINT INJ. FLUORO GUID RAD CLINICAL HISTORY: left shoulder pain,fluoro guided injection,lt rotator cuff tear,arthritis. The Guicho gonzalez has had persistent left shoulder pain. Noninvasive measures have been tried. To serve as both diagnostic and therapeutic, an injection under fluoroscopy was recommended. The risks of the proced ure were discussed with their Orthopedic provider and the patient elected to proceed. TECHNIQUE: 2D and realtime digital imaging was performed. CONTRAST MATERIAL: Water soluble contrast was utilized. COMPARISON: No exams were available for comparison FINDINGS: The Patient was greeted in the fluoroscopy room. The correct side was identified and the consent was reviewed with the patient and was signed. The patient was properly positioned on the fluoroscopy ta ble. The left shoulderwas then prepped and draped. The left shoulder injection starting point was i dentified by the bony landmarks and fluoroscopy. The skin and soft tissue in the tract of the inject ion was anesthetized with 1% Bupivacaine. A spinal needle was then inserted into the left shoulder j oint at the level of the glenohumeral joint under fluoroscopic guidance. A small amount of Omnipaque solution was injected to confirm intraarticular placement. Once confirmed, the left shoulder was in jected with 5cc of a solution containing 0.5% Bupivacaiine and 40 mg of Depo-Medrol. A bandaid was p laced on the injection site. The patient tolerated the procedure well and left the department in goo d condition. IMPRESSION: Successful left shoulder injection. RADIATION DOSE DELIVERED: Ka,r=3.8 mGy
[2024-08-15] MEDS: Normal Saline - Diluent 50 ML VIAL 10 ML IJ (12:24)
[2024-08-15] MEDS: Omnipaque 300 MG/ML 10 ML BTL 5 ML IJ (12:24)
[2024-08-15] MEDS: Bupivacaine 0.5% Pres-Free 10 ML VIAL IJ (12:26)
[2024-08-15] MEDS: methylPREDNISolone ACETATE 40 MG/ML VIAL IM (12:32)
== END 2024-08-15 03:07 ==
LOC: DI 02:47
PROVIDERS: PCP Nurse Practitioner Family; Visit Provider Student in an Organized Health Care Education/Training Program
DX: M25.512 Pain in left shoulder (principal)
CPT/HCPCS: 20610; 77002; J0665; J1010

== ENCOUNTER 2024-11-20 13:03 | Outpatient (REF) | payer OTHER, SELFPAY ==
[2024-11-20 15:35] LABS: Bilirubin Negative (Negative); Blood Negative (Negative); Clarity Turbid (Clear); Glucose Negative (Negative); Ketones Negative (Negative); Leukocyte Esterase Trace (Negative); Nitrite Negative (Negative); Specific Gravity >= 1.030 (1.005-1.025); Urobilinogen 0.2 mg/dL (Up to 0.2); pH 5.5 (5-8)
[2024-11-20 15:45] LABS: Bacteria Rare HPF (Negative); C & S Indicated? No; Casts Negative LPF (Negative); Crystals Few Calcium Oxalate HPF (Negative); Epithelial Cells Rare HPF (Negative); Mucus Negative (Negative); RBC Negative HPF (0-2); WBC 0-2 HPF (0-5)
[2024-11-20 15:59] LABS: COMMENT (LAB VIEW ONLY) 253.96 mg/dL; Microalb ug/mg Crea 5.8 ug/mg Cr
== END 2024-11-20 13:04 | disposition home or self-care (01) ==
LOC: NCHCN 13:03
PROVIDERS: PCP Nurse Practitioner Family; Visit Provider Nurse Practitioner Family
DX: E11.9 Type 2 diabetes mellitus without complications (principal)
CPT/HCPCS: 81003; 81015; 82043; 82570

== ENCOUNTER 2024-11-30 00:46 | Outpatient (CLI) | payer OTHER, SELFPAY ==
--- NOTE | 2024-11-30 | DI.RAD_ITS ---
Exam(s) XR HAND LT COMPLETE EXAM: XR HAND LT COMPLETE CLINICAL HISTORY: Pain in finger of lt hand, M79.645. TECHNIQUE: 2D digital imaging was performed of the left hand. Three views were obtained. AP, later al and oblique views were obtained. COMPARISON: No exams were available for comparison FINDINGS: BONES: No acute fracture is present. No bony destructive lesion is seen. JOINTS: No dislocation present. There is mild arthrosis of the hand and wrist. SOFT TISSUE: Normal. Radiopaque foreign bodies. IMPRESSION: 1. No acute fracture or dislocation. 2. Mild arthrosis of the left hand and wrist. DATA REPOSITORY: RADIATION DOSE DELIVERED:
== END 2024-11-30 01:06 ==
LOC: DI 00:47
PROVIDERS: PCP Nurse Practitioner Family; Visit Provider Nurse Practitioner Family
DX: M19.042 Primary osteoarthritis, left hand (principal)
CPT/HCPCS: 73130

== ENCOUNTER → 2025-06-21 03:12 | Outpatient (CLI) | payer MEDICARE, SELFPAY ==
--- NOTE | 2025-06-21 12:04 | DI.MAMMO_ITS ---
Exam(s) MAMMO SCREENING EXAM: MAMMO SCREENING CLINICAL HISTORY: FAM HX OF BREAST CANCER, Z80.3 TECHNIQUE: Mammograms were interpreted according to the usual protocol including computer analysis with CAD system, tomosynthesis and C-view imaging. COMPARISON: 2015 through 2023 FINDINGS: The breasts are composed of scattered fibroglandular densities, Breast Density category B. No suspicious masses or suspicious microcalcifications are seen. No skin thickening or abnormal axillary lymph nodes are seen. There has been no significant change from prior exams. IMPRESSION: BI-RADS Category 1, Negative mammogram Yearly screening mammography is recommended. Breast Density - Category B - There are scattered areas of fibroglandular density. Breast density Category C or D implies that the patient has dense breast tissue. Dense breast tissue can make it harder to find cancer on a mammogram. Dense breast tissue is also associated with an increased risk of breast cancer. This information about the result of the mammogram report was provided to the patient to raise their awareness. Use this report when you speak with the patient about their risks for breast cancer, which includes their family history. At that time, you may recommend additional screening tests (Ultrasound or MRI) as these tests may add significant information. A negative radiographic report should not delay biopsy if a dominant or clinically suspicious mass is present. Up to ten percent of cancers are not identified on mammography. A negative report may reinforce clinical impression. Adenosis and dense breasts may obscure an underlying neoplasm. False positive reports average 6 to 10%. Patient will receive a letter notifying them of these results.
== END ==
LOC: DI 03:12
PROVIDERS: PCP Nurse Practitioner Family; Visit Provider Nurse Practitioner Family
DX: Z80.3 Family history of malignant neoplasm of breast (principal); Z12.31 Encounter for screening mammogram for malignant neoplasm of breast; R92.323 Mammographic fibroglandular density, bilateral breasts
CPT/HCPCS: 77063; 77067